=== PATIENT | female | born 1935 | race Caucasian/White ===

== ENCOUNTER 2022-09-17 08:45 | Outpatient (CLI) | payer MEDICARE, BC, SELFPAY | END 2022-09-17 08:46 | disposition home or self-care (01) | LOC: AMB 09-22 19:12 | PROVIDERS: PCP Family Medicine; Visit Provider Family Medicine | DX: U07.1 COVID-19 (principal); R06.09 Other forms of dyspnea | CPT/HCPCS: A0998 ==

== ENCOUNTER 2022-12-05 15:03 | Outpatient (CLI) | payer MEDICARE, BC, SELFPAY | END 2022-12-05 15:04 | disposition home or self-care (01) | LOC: AMB 12-08 09:27 | PROVIDERS: PCP Family Medicine; Visit Provider Emergency Medicine | DX: R53.1 Weakness (principal) | CPT/HCPCS: A0998 ==

== ENCOUNTER 2023-11-23 12:00 | Outpatient (CLI) | payer MEDICARE, BC, SELFPAY | END 2023-11-23 12:01 | disposition home or self-care (01) | LOC: AMB 12-01 11:37 | PROVIDERS: PCP Family Medicine; Visit Provider Emergency Medicine | DX: S79.912A Unspecified injury of left hip, initial encounter (principal); W07.XXXA Fall from chair, initial encounter; Y92.039 Unspecified place in apartment as the place of occurrence of the external cause | CPT/HCPCS: A0425; A0429 ==

== ENCOUNTER 2023-11-23 12:24 | Inpatient (IN) | payer MEDICARE, BC, SELFPAY ==
[2023-11-23] VITALS (7 sets, daily range): BP systolic 76–169; BP diastolic 49–82; PULSE 62–89; RESP 16–20; TEMP 36.6–36.9; O2SAT 86–94; BMI 26.6
--- NOTE | 2023-11-23 13:08 | XR_ITS ---
Patient: MARIA ESTHER JORDAN Facility:?[facility] Patient ID:?[id number] Site Patient ID:?[id number]. Site :?[id number] Study:?XRay-Chest 1V-11/23/2023 1:45:15 PM Ordering Physician:SOBEIDA Final Report: Indication: Hypoxia, fall Technique: Chest 1 view Comparison: Chest x-ray 12/06/2021 Findings/Impression: Cardiovascular and mediastinum: Mild cardiomegaly with left-sided dual lead pacemaker. Atherosclerosis. Lungs and pleural space: No pleural effusion or pneumothorax. Mild pulmonary cephalization. Bones and soft tissues: No acute findings. Dictated by Marlo Angel MD @ 11/23/2023 1:54:44 PM Signed by:?Marlo Angel MD @11/23/2023 1:54:44 PM (Electronic Signature)
--- NOTE | 2023-11-23 13:09 | XR_ITS ---
Patient: MARIA ESTHER JORDAN Facility:?[facility] Patient ID:?[id number] Site Patient ID:?[id number]. Site :?[id number] Study:?XRay-Hip Left 3V-11/23/2023 1:46:08 PM Ordering Physician:SOBEIDA Final Report: INDICATION: Fall. TECHNIQUE: AP pelvis and 2 views of the left hip. COMPARISON: Radiographs 06/20/2020. FINDINGS: There is limited evaluation of the left femoral neck due to poor profiling from external rotation of the left lower extremity. Given these limitations, there is suggestion of cortical disruption and minimal impaction along the lateral aspect of the subcapital femoral neck. No definite femoral neck fracture line is visualized. There are mildly displaced fractures of the left superior and inferior pubic rami. Right hip is unremarkable. The sacrum is obscured by bowel gas. Moderate lower lumbar degenerative disc disease. Extensive atherosclerotic arterial calcifications. IMPRESSION : 1. Mildly displaced left superior and inferior pubic rami fractures. 2. Query nondisplaced subcapital left femoral neck fracture due to new lateral cortical buckling; however, a discrete fracture line is not visualized. Dictated by Regina Oden MD @ 11/23/2023 2:35:57 PM Signed by:?Regina Oden MD @11/23/2023 2:35:57 PM (Electronic Signature)
--- NOTE | 2023-11-23 13:36 | ED_ITS ---
HPI - General Adult General Date Seen: 11/23/23 Chief complaint: Fall/Minor Trauma Stated complaint: Fall Time Seen by Provider: 11/23/23 13:01 Source: patient and RN notes reviewed Mode of arrival: EMS Limitations: no limitations History of Present Illness HPI narrative: Patient is an 88-year-old woman who says she lives independently in a senior apartment. She was going to sit down on a chair that had pillows on it and she says the pillow slipped off and she fell landing hard on her left hip. She said it knocked the wind out of her but she otherwise has not been feeling short of breath. Denies chest pain or chest injury. She has not tried to walk on her left leg since falling, she did stand on it to pivot into the ER bed and said it was painful to put weight on it. She is anticoagulated on Coumadin, which she takes for atrial fibrillation. She denies hitting her head, no reported loss of consciousness. No neck or back pain. Related Data Home Medications Medication Instructions Recorded Confirmed acetaminophen 500 mg tablet 500 - 1,000 mg PO PRN 07/07/22 07/07/22 calcium carbonate 500 mg-vitamin 1 tab PO DAILY 07/07/22 07/07/22 D3 10 mcg (400 unit) tablet cholecalciferol (vitamin D3) 50 2,000 unit PO DAILY 07/07/22 07/07/22 mcg (2,000 unit) tablet fosinopril 20 mg tablet 20 mg PO DAILY 07/07/22 07/07/22 levothyroxine 112 mcg tablet 112 mcg PO DAILY 07/07/22 07/07/22 multivitamin 1 tab PO QDAY 07/07/22 07/07/22 triamterene 37.5 1 cap PO DAILY 07/07/22 07/07/22 mg-hydrochlorothiazide 25 mg capsule vitamins A,C,M-tffz-koamoi 4,296 1 cap PO .QD 07/07/22 07/07/22 mcg-226 mg-90 mg capsule (PreserVision AREDS) warfarin 2 mg tablet 2 - 4 mg PO .ud 07/07/22 07/07/22 Allergies Allergy/AdvReac Type Severity Reaction Status Date / Time piperacillin Allergy Mild Rash Verified 11/23/23 12:34 sulfamethoxazole Allergy Verified 11/23/23 12:34 [From Sulfamethoxazole-Trimethoprim] trimethoprim Allergy Verified 11/23/23 12:34 [From Sulfamethoxazole-Trimethoprim] Review of Systems Status of ROS: Reports: 6 or more systems reviewed and unremarkable except as noted in History and below [facility] Social History Smoking Status: Former smoker Exam Narrative: Exam Narrative: Vital signs as noted above. In general, an alert, well-appearing patient. Head: Normocephalic, atraumatic. Eyes: Pupils are equal reactive. Extraocular movements are full. Conjunctivae are normal. ENT: Mucous membranes are moist. Throat is normal. Neck: Supple without lymphadenopathy. Heart: Regular rate and rhythm. No murmur or rub. Lungs: Clear bilaterally. No increased work of breathing, crackles or wheezes. Abdomen: Soft and nontender. No organomegaly. Extremities: Trace edema in both lower extremities. Venous stasis changes. No significant bruising or deformity noted to the left hip, pain with range of motion. Neurologic: Patient is alert and oriented to person and place. Speech is fluent. Face is symmetric. Moves all extremities equally. Affect: Normal. Skin: Warm and dry. Well perfused. Const: Vital Signs, click to edit/add: Vital Signs - 24 hr 11/23/23 12:32 Temperature 98.0 F Pulse Rate [Right Pulse Oximeter] 89 Respiratory Rate 16 Blood Pressure [Ri ght Upper Arm] 149/82 H Pulse Oximetry 86 L Oxygen Delivery Me thod Room Air Documenting provider has reviewed patient's vital signs: yes Course Course ED Course: Noted to be mildly hypoxic on arrival and placed on some nasal cannula oxygen. Will get x-rays of the left hip as well as the chest as a result. X-ray of the left hip shows superior and inferior pubic rami fractures by my review, the femoral neck also looks a little funny on the AP view although the frog-leg looks good. Radiology read it as abnormal as well and recommended CT scan. CT of the left hip as follows:FINDINGS: LEFT HIP: No joint effusion or loose body. Minimal hypertrophic change and narrowing. OSSEOUS STRUCTURES: Highly comminuted mildly displaced fracture of the left inferior pubic ramus and right superior pubic ramus at the junction with the pubic. There is adjacent hemorrhage in the adductor musculature and extraperitoneal space of Retzius. No discrete hematoma. In addition there is a nondisplaced fracture of the superior left sacral ala anteriorly. No left femoral neck fracture is evident. The radiographic findings are secondary to overlap from hypertrophic changes. OTHER JOINT SPACES: Right Hip: No joint effusion. SI Joints: Mild degenerative changes. Lumbar Spine: Degenerative changes lower lumbar spine. MUSCLES AND TENDONS: Hemorrhage in the left adductor musculature. No hematoma. No muscle atrophy. No retracted tendon tear. SOFT TISSUES: No subcutaneous edema, fluid collection or hematoma. INTRAPELVIC CONTENTS: No free intraperitoneal fluid. Fat containing umbilical hernia. NEUROVASCULAR STRUCTURES: No abnormality of the neurovascular structures. IMPRESSION: 1. No left femoral neck fracture is evident. 2. Comminuted displaced fractures of the left superior and inferior pubic rami with adjacent hemorrhage. No focal hematoma. 3. Nondisplaced fracture of the left sacral ala. 4. Mild degenerative changes in the left hip joint and SI joints. 5. Degenerative changes lower lumbar spine.. Overall she is doing okay as long she does not have to move, but just rolling to the side to get on the bedpan was a struggle for her. She lives at assisted living, has minimal help aside from an aide who comes in a couple times a week. I do not think she will be able to manage as is. Recommend admission for pain control, PT eval and consideration of short-term rehab facility. She remains on a couple L of oxygen here, chest x-ray was negative. Labs added on as well, pending. Vital Signs Vital signs: Initial Vital Signs Temperature 98.0 F 11/23/23 12:32 Temperature Source Temporal Artery Scan 11/23/23 12:32 Pulse Rate 89 11/23/23 12:32 Pulse Rhythm Regular 11/23/23 12:32 Pulse Strength 3+ Normal 11/23/23 12:32 Respiratory Rate 16 11/23/23 12:32 Blood Pressure 149/82 H 11/23/23 12:32 Blood Pressure Mean 104 11/23/23 12:32 Blood Pressure Position Sitting 11/23/23 12:32 Pulse Oximetry 86 L 11/23/23 12:32 Oxygen Delivery Method Room Air 11/23/23 12:32 Vital Signs Temperature 98.0 F 11/23/23 12:32 Pulse Rate 89 11/23/23 12:32 Respiratory Rate 16 11/23/23 12:32 Blood Pressure 149/82 H 11/23/23 12:32 Pulse Oximetry 86 L 11/23/23 12:32 Oxygen Delivery Method Room Air 11/23/23 12:32 Temperature 98.0 F 11/23/23 12:32 Pulse Rate 89 11/23/23 12:32 Respiratory Rate 16 11/23/23 12:32 Blood Pressure 149/82 H 11/23/23 12:32 Pulse Oximetry 86 L 11/23/23 12:32 Oxygen Delivery Method Room Air 11/23/23 12:32 Discharge Plan Discharge Prescriptions: No Action cholecalciferol (vitamin D3) 50 mcg (2,000 unit) tablet 2,000 unit PO DAILY calcium carbonate-vitamin D3 500 mg-10 mcg (400 unit) tablet 1 tab PO DAILY levothyroxine 112 mcg tablet 112 mcg PO DAILY triamterene-hydrochlorothiazid 37.5-25 mg capsule 1 cap PO DAILY acetaminophen 500 mg tablet 500 - 1,000 mg PO PRN Rx Instructions: NO MORE THAN 4000 MG/DAY fosinopril 20 mg tablet 20 mg PO DAILY multivitamin Tablet 1 tab PO QDAY PreserVision AREDS [id number],320-226-200 [id number]-ak-[id number] capsule 1 cap PO .QD warfarin 2 mg tablet 2 - 4 mg PO .ud Patient Comments: take 1 tablet (2mg) by mouth on monday; then 2 tablets (4mg) on all other days or as directed. Follow Up/Referrals: Brittanie Whyte DO [Primary Care Provider] -
--- NOTE | 2023-11-23 14:42 | CT_ITS ---
Patient: MARIA ESTHER JORDAN Facility:?[facility] Patient ID:?[id number] Site Patient ID:?[id number]. Site :?[id number] Study:?CT-Hip Left W/O-11/23/2023 3:02:59 PM Ordering Physician:SOBEIDA Final Report: EXAM: CT OF THE LEFT HIP, WITHOUT CONTRAST CLINICAL INDICATION: Pain following injury. Abnormal x-ray. COMPARISON STUDIES: Radiographs from earlier the day. TECHNICAL: Non-contrast CT of the pelvis with axial images. Sagittal oblique and coronal oblique reformatted images of the left hip created. FINDINGS: LEFT HIP: No joint effusion or loose body. Minimal hypertrophic change and narrowing. OSSEOUS STRUCTURES: Highly comminuted mildly displaced fracture of the left inferior pubic ramus and right superior pubic ramus at the junction with the pubic. There is adjacent hemorrhage in the adductor musculature and extraperitoneal space of Retzius. No discrete hematoma. In addition there is a nondisplaced fracture of the superior left sacral ala anteriorly. No left femoral neck fracture is evident. The radiographic findings are secondary to overlap from hypertrophic changes. OTHER JOINT SPACES: Right Hip: No joint effusion. SI Joints: Mild degenerative changes. Lumbar Spine: Degenerative changes lower lumbar spine. MUSCLES AND TENDONS: Hemorrhage in the left adductor musculature. No hematoma. No muscle atrophy. No retracted tendon tear. SOFT TISSUES: No subcutaneous edema, fluid collection or hematoma. INTRAPELVIC CONTENTS: No free intraperitoneal fluid. Fat containing umbilical hernia. NEUROVASCULAR STRUCTURES: No abnormality of the neurovascular structures. IMPRESSION: 1. No left femoral neck fracture is evident. 2. Comminuted displaced fractures of the left superior and inferior pubic rami with adjacent hemorrhage. No focal hematoma. 3. Nondisplaced fracture of the left sacral ala. 4. Mild degenerative changes in the left hip joint and SI joints. 5. Degenerative changes lower lumbar spine. Please note that all CT scans at this facility use dose modulation, iterative reconstruction, and/or weight-based dosing when appropriate to reduce radiation dose to as low as reasonably achievable. Dictated by Geremias Sotomayor MD @ 11/23/2023 3:18:42 PM Signed by:?Geremias Sotomayor MD @11/23/2023 3:18:42 PM (Electronic Signature)
[2023-11-23 15:40] LABS: Appearance Urine Clear (Clear); Bilirubin Urine Negative (Negative); Blood Urine Trace-intact (Negative); Color Urine Yellow (Yellow); Glucose Urine Negative (Negative); Ketones Urine Negative (Negative); Leukocyte Esterase Urine Trace (Negative); Nitrite Urine Negative (Negative); Protein Urine Negative (Negative); Specific Gravity Urine 1.025 (1.000-1.030); Urobilinogen Urine 0.2 (0.2-1.0)
[2023-11-23 16:03] LABS: Basophils Percent Auto 0.1 % (0.0-3.0); Eosinophils Percent Auto 0.2 % (0.0-7.0); Hematocrit 40.7 % (33.0-51.0); Immature Granulocytes Pct Auto 1.2 %; Lymphocytes Percent Auto 3.3 % (20-44); Mean Corpuscular HGB Conc 32 gm/dL (32-36); Mean Corpuscular Hemoglobin 31 pg (26-34); Mean Corpuscular Volume 98 fL (80-100); Monocytes Percent Auto 4.4 % (0.0-11.0); Neutrophils Percent Auto 90.8 % (42.0-72.0); Platelet Count* 143 K/uL (140-440); RDW Coefficient of Variation % 14.4 % (11.5-15.5); Red Blood Count 4.17 m/uL (4.00-5.20); White Blood Count* 14.86 K/uL (4.50-11.00)
[2023-11-23 16:12] LABS: Chloride* 99 mmol/L (96-114)
[2023-11-23 16:13] LABS: Potassium* 4.3 mmol/L (3.6-5.1); Sodium* 138 mmol/L (135-149)
[2023-11-23 16:15] LABS: Est. Creatinine Clearance* 34.99; Estimated Glomerular Filt Rate 54 ml/min
[2023-11-23 16:16] LABS: Anion Gap 9 mEq/L (7-15); Blood Urea Nitrogen* 40 mg/dL (7-30); Calcium* 9.4 mg/dL (8.4-10.6); Carbon Dioxide* 30 mmol/L (20-32)
[2023-11-23 16:24] LABS: Bacteria Urine Few; Squamous Epithelial Cell Urine Few (None-Few)
[2023-11-23 16:34] LABS: Glucose* 135 mg/dL (60-115)
[2023-11-23 16:38] LABS: NT Pro B Type NatriureticPept* 2220 pg/mL
[2023-11-23 16:52] LABS: Slide Review Reflex Yes
[2023-11-23 16:55] LABS: Slide Review Acceptable Review (Acceptable)
[2023-11-23 17:01] LABS: PCR FLU A Negative PCR FLU A (Negative); PCR FLU B Negative PCR FLU B (Negative); PCR RSV Negative PCR RSV (Negative); SARS PCR* Negative SARS-CoV-2 (Negative)
--- NOTE | 2023-11-23 17:15 | PM.IMHP1 ---
Hospitalist- H&P: HPI History of Present Illness Date Seen: 11/23/23 Chief complaint: Fall Narrative: Kaitlynn Castrejon is a 88 year old female who presented to the ED today after a fall at home. She was going to sit down on a chair that had pillows on the seat, and one of the pillows slipped when she sat down. She fell off of the chair and landed onto her L hip. She did not hit her head or have any LOC. She has had significant L hip pain since injury and is unable to bear weight comfortably. She is anticoagulated on Coumadin for history of atrial fibrillation. ER Course and Findings: - comminuted displaced fractures of left superior and inferior pubic rami with adjacent hemorrhage but no focal hematoma, nondisplaced fracture of left sacral ala, no femoral neck fracture - hypoxia with O2 saturation of 86% in the ED. no chest pain, no dyspnea, no acute findings on chest x-ray. Placed on supplemental oxygen Given patient's fracture and inability to bear weight, she is admitted to the hospital for pain management, therapies, TCU referral. Histories are updated below. PCP is Dr. Whyte at [facility]. Review of Systems Status of ROS: Reports: 10 or more systems reviewed and unremarkable except as noted in History and below [facility] Medical History (Updated 11/23/23 @ 20:14 by Jessica Wilson MD) Hypothyroidism ?E03.9 - Hypothyroidism, unspecified (ICD-10) Paroxysmal atrial fibrillation ?I48.0 - Paroxysmal atrial fibrillation (ICD-10) CKD (chronic kidney disease) stage 3, GFR 30-59 ml/min ?N18.30 - Chronic kidney disease, stage 3 unspecified (ICD-10) Osteoporosis ?M81.0 - Age-related osteoporosis without current pathological fracture (ICD-10) Essential hypertension ?I10 - Essential (primary) hypertension (ICD-10) Pacemaker ?Z95.0 - Presence of cardiac pacemaker (ICD-10) Surgical History (Updated 11/23/23 @ 17:53 by Jessica Wilson MD) Cataract (lens) fragments in eye following cataract surgery ?H59.029 - Cataract (lens) fragments in eye following cataract surgery, unspecified eye (ICD-10) Hx of colonoscopy ?Z98.890 - Other specified postprocedural states (ICD-10) Social History (Updated 11/23/23 @ 17:48 by Jessica Wilson MD) Narrative: Lives alone, no children. Caregiver Tanja Mendiola would be MDM if needed. 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 Former smoker, quit remotely. No ETOH. Requests trial of CPR/Full Code status with no desire for long-term intubation. What is your current living situation?: I presently have a place to live Problems where you live: no known problems Problems where you live details: N/A In the past 12 months, utilities in danger of being shut off: no In past 12 months, lack of transportation kept you from medical appts, meetings, work, or getting things needed for daily living: no In the past 12 mos, have been you worried that your food would run out before you had money to buy more?: never true In the past 12 mos, the food you bought just didn't last and you didn't have money to buy more?: never true Smoking Status: Former smoker How often does anyone, including family, friends and others, physically hurt you: never How often does anyone, including family, friends and others, insult or talk down to you: never How often does anyone, including family, friends and others, threaten you with harm: never How often does anyone, including family, friends and others, scream or curse at you: never Meds Home Medications and Allergies Home Medications Medication Instructions Recorded Confirmed Type calcium carbonate 500 mg-vitamin 1 tab PO DAILY 07/07/22 11/23/23 History D3 10 mcg (400 unit) tablet cholecalciferol (vitamin D3) 50 2,000 unit PO DAILY 07/07/22 11/23/23 History mcg (2,000 unit) tablet multivitamin 1 tab PO DAILY 07/07/22 11/23/23 History vitamins A,C,I-woyc-wnvkat 4,296 1 cap PO DAILY 07/07/22 11/23/23 History mcg-226 mg-90 mg capsule (PreserVision AREDS) warfarin 2 mg tablet 2 - 4 mg PO .ud 07/07/22 11/23/23 History fluconazole 150 mg tablet 150 mg PO QWEEK 11/23/23 11/23/23 History fosinopril 10 mg tablet 10 mg PO DAILY 11/23/23 11/23/23 History levothyroxine 125 mcg tablet 125 mcg PO QAM 11/23/23 11/23/23 History metoprolol succinate 50 mg 50 mg PO DAILY 11/23/23 11/23/23 History tablet,extended release 24 hr Allergies Allergy/AdvReac Type Severity Reaction Status Date / Time piperacillin Allergy Mild Rash Verified 11/23/23 12:34 sulfamethoxazole Allergy Verified 11/23/23 12:34 [From Sulfamethoxazole-Trimethoprim] trimethoprim Allergy Verified 11/23/23 12:34 [From Sulfamethoxazole-Trimethoprim] Exam Narrative: Exam Narrative: GEN: Alert and oriented, answering questions appropriately HEENT: EOMIs bilaterally, no scleral icterus CV: S1, S2, in sinus rhythm during exam, no concerning murmurs R: LCTA bilaterally without concerning wheezing Ext: Feet bilaterally erythematous and cool, pulses bilaterally diminished, + capillary refill, no ttp. No edema of ankles Skin: Erythema of BLE, c/w PVD. No other concerning skin lesions on exposed skin Neuro: Nonfocal Psych: Appropriate Const: Vital Signs, click to edit/add: Vital Signs - 24 hr 11/23/23 12:32 11/23/23 16:55 Temperature 98.0 F 97.8 F Pulse Rate [Right Pulse Oximeter] 89 Pulse Rate [Right Radial] 62 Respiratory Rate 16 18 Blood Pressure [Ri ght Arm] 169/77 H Blood Pressure [Ri ght Upper Arm] 149/82 H Pulse Oximetry 86 L 94 Oxygen Delivery Me thod Room Air Nasal Cannula Oxygen Flow Rate 2 Hospitalist - H&P: Result Labs Labs: Short CBC 11/23/23 Range/Units 15:50 WBC 14.86 H (4.50-11.00) K/uL Hgb 13.0 (12.0-16.0) gm/dL Hct 40.7 (33.0-51.0) % Plt Count 143 (140-440) K/uL BMP 11/23/23 15:50 Sodium 138 Potassium 4.3 Chloride 99 Carbon Dioxide 30 BUN 40 H Creatinine 1.0 Glucose 135 H Calcium 9.4 Urine 11/23/23 Range/Units 15:12 Urine Color Yellow (Yellow) Urine Appearance Clear (Clear) Urine pH 7.0 (5.0-8.5) Ur Specific Salley 1.025 (1.000-1.030) Urine Protein Negative (Negative) Urine Glucose (UA) Negative (Negative) Assessment and Plan Assessment and plan (1) Closed pelvic ring fracture: Problem comment: - sustained after mechanical fall at home, 11/23/23 - pain management, PT, OT, SW referral Status: Acute (2) Hypoxia: Problem comment: - mild, new - no acute findings on CXR: no tachycardia, no chest pain, dyspnea, cough, or hemoptysis, no LE edema - continue supplemental oxygen, taper as tolerated Status: Acute (3) Paroxysmal atrial fibrillation: Problem comment: - anticoagulated on Coumadin, rate controlled on Metoprolol - holding Coumadin on admission given fall and hemorrhage on CT scan Status: Acute (4) Essential hypertension: Problem comment: - continue home medications Status: Acute Plan - per above - patient agreeable with plan
[2023-11-23] MEDS: ACETAMINOPHEN 650 MG TABLET ER 1300 MG PO (18:02)
[2023-11-23 18:41] LABS: INR 1.65 (0.91-1.10); Prothrombin Time 20.7 Seconds
[2023-11-24] MEDS: ACETAMINOPHEN 650 MG TABLET ER 1300 MG PO ×2 (01:31→08:40)
[2023-11-24 03:00] VITALS: BP 108/66; PULSE 60; RESP 20; TEMP 36.6; O2SAT 92
[2023-11-24] MEDS: OXYCODONE 5 MG TABLET PO ×2 (06:08→13:48)
[2023-11-24] MEDS: LEVOTHYROXINE 125 MCG TABLET PO (06:09)
[2023-11-24 06:46] LABS: Basophils Percent Auto 0.3 % (0.0-3.0); Eosinophils Percent Auto 0.8 % (0.0-7.0); Hematocrit 33.3 % (33.0-51.0); Hemoglobin* 10.9 gm/dL (12.0-16.0); Immature Granulocytes Pct Auto 0.5 %; Lymphocytes Percent Auto 3.7 % (20-44); Mean Corpuscular HGB Conc 33 gm/dL (32-36); Mean Corpuscular Hemoglobin 31 pg (26-34); Mean Corpuscular Volume 96 fL (80-100); Monocytes Percent Auto 7.8 % (0.0-11.0); Neutrophils Percent Auto 86.9 % (42.0-72.0); Platelet Count* 97 K/uL (140-440); RDW Coefficient of Variation % 14.5 % (11.5-15.5); Red Blood Count 3.48 m/uL (4.00-5.20)
--- NOTE | 2023-11-24 06:47 | PC.NURSE ---
19-07: pleasant and cooperative. Incont. A x 2 to BSC, did not tolerate well, pt was unable to pivot. Nurse held HS dose Metoprolol, soft pressures noted, updated, no change in orders. Moist cough noted, Pt requiring 1L O2, maintaining sats in the low 90s.
[2023-11-24 06:53] LABS: Slide Review Reflex No
[2023-11-24 07:09] LABS: Prothrombin Time 23.1 Seconds
[2023-11-24 07:10] LABS: Chloride* 102 mmol/L (96-114); Potassium* 5.2 mmol/L (3.6-5.1); Sodium* 136 mmol/L (135-149)
[2023-11-24 07:13] LABS: Anion Gap 6 mEq/L (7-15); Blood Urea Nitrogen* 48 mg/dL (7-30); Carbon Dioxide* 28 mmol/L (20-32); Creatinine* 1.5 mg/dL (0.5-1.5); Est. Creatinine Clearance* 23.33; Estimated Glomerular Filt Rate 33 ml/min; Glucose* 130 mg/dL (60-115)
[2023-11-24 07:14] LABS: Calcium* 9.2 mg/dL (8.4-10.6)
[2023-11-24 08:22] VITALS: BP 108/62; PULSE 65; RESP 18; TEMP 37.2; O2SAT 89
[2023-11-24] MEDS: FOSINOPRIL SODIUM 20 MG TABLET 10 MG PO (08:40)
[2023-11-24] MEDS: SODIUM CHLORIDE 0.9 % (FLUSH) 10 ML SYRINGE 5 ML IVF ×2 (08:41→21:04)
--- NOTE | 2023-11-24 11:31 | P.IMPN_ITS ---
Progress Note: A&P Assessment and plan (1) Closed pelvic ring fracture: Problem details: - sustained after mechanical fall at home, 11/23/23 - pain management, WBAT, PT, OT, SW referral for SNF placement - Adjacent hemorrhage on CT yesterday. Hgb 13 yesterday, now 10.9. Discussing with ortho whether or not to repeat imaging and when to restart coumadin. Status: Acute (2) Hypoxia: Problem details: - mild, new - no acute findings on CXR: no tachycardia, no chest pain, dyspnea, cough, or hemoptysis, no LE edema - continue supplemental oxygen, RT consult and IS to open lungs (suspect body h abitus and kyphosis are contributing to poor lung capacity), taper oxygen as tolerated Status: Acute (3) CKD (chronic kidney disease) stage 3, GFR 30-59 ml/min: Problem details: Increase in Cr overnight. Potassium also slightly high. Hold fosinopril. Monitor. Status: Chronic (4) Paroxysmal atrial fibrillation: Problem details: - anticoagulated on Coumadin, rate controlled on Metoprolol - holding Coumadin on admission given fall and hemorrhage on CT scan - see above - last TTE in 06/17: Final Impressions: 1. Normal LV size, normal wall thickness, normal global systolic function with an estimated EF of 55 - 60%. 2. Right ventricular cavity size is mildly enlarged, global systolic RV function is mildly reduced. 3. The aortic valve is trileaflet and sclerotic, no stenosis and no regurgitation. 4. The mitral valve is sclerotic, mild mitral regurgitation. 5. Mild-moderate tricuspid regurgitation. 6. Mildly enlarged left atrium. 7. Echo contrast was administered to enhance visualization of all left ventricular segments. Status: Chronic (5) Essential hypertension: Problem details: - holding fosinopril due to increased creatinine and mild hyperkalemia Status: Acute Subjective Time Seen by Provider: 09:59 Date Seen: 11/24/23 Interval history: Kaitlynn is feeling a bit better today, but still has some pain and difficulty standing and moving on her own. She used a bedside commode and notes that she would not be set up to do this at home independently. She is hoping to get rehab, recognizing that she needs it at this point. She has been mildly hypoxic overnight. Denies shortness of breath or chest pain. She has not had any coughs or fevers. Exam Narrative: Exam Narrative: General: No acute distress. Awake, alert, oriented x3. No pallor. No jaundice. Kyphotic. Oropharynx: Clear. Mucous membranes moist. Cardiovascular: Regular rate and rhythm. No murmurs, gallops, or rubs. Respiratory: Clear to auscultation bilaterally. No wheezes or crackles. Extremities: Chronic vascular changes noted. No lower extremity edema. Const: Vital Signs, click to edit/add: Vital Signs - 24 hr 11/23/23 12:32 11/23/23 16:53 11/23/23 16:55 Temperature 98.0 F 97.8 F Pulse Rate [Right Pulse Oximeter] 89 Pulse Rate [Right Radial] 62 Respiratory Rate 16 20 18 Blood Pressure [Ri ght Arm] 169/77 H Blood Pressure [Ri ght Upper Arm] 149/82 H Pulse Oximetry 86 L 92 94 Oxygen Delivery Me thod Room Air Nasal Cannula Nasal Cannula Oxygen Flow Rate 1 2 11/23/23 20:00 11/23/23 21:30 11/23/23 21:31 Temperature 98.4 F Pulse Rate [Right Pulse Oximeter] Pulse Rate [Right Radial] 75 62 Respiratory Rate 20 20 Blood Pressure [Ri ght Arm] 116/66 76/49 L 100/66 Blood Pressure [Ri ght Upper Arm] Pulse Oximetry 92 Oxygen Delivery Me thod Nasal Cannula Oxygen Flow Rate 1 11/23/23 23:00 11/23/23 23:00 11/24/23 03:00 Temperature 97.8 F Pulse Rate [Right Pulse Oximeter] Pulse Rate [Right Radial] 60 Respiratory Rate 20 20 20 Blood Pressure [Ri ght Arm] 108/66 Blood Pressure [Ri ght Upper Arm] Pulse Oximetry 92 92 Oxygen Delivery Me thod Nasal Cannula Nasal Cannula Oxygen Flow Rate 1 1 11/24/23 08:22 11/24/23 08:22 Temperature 99.0 F Pulse Rate [Right Pulse Oximeter] Pulse Rate [Right Radial] 65 Respiratory Rate 18 Blood Pressure [Ri ght Arm] 108/62 Blood Pressure [Ri ght Upper Arm] Pulse Oximetry 89 89 Oxygen Delivery Me thod Nasal Cannula Nasal Cannula Oxygen Flow Rate 1 1 Labs Labs: Laboratory Results - last 24 hr 11/23/23 11/23/23 11/24/23 15:12 15:50 06:13 WBC 14.86 H 12.90 H RBC 4.17 3.48 L Hgb 13.0 10.9 L Hct 40.7 33.3 MCV 98 96 MCH 31 31 MCHC 32 33 RDW Coeff of [place]al 14.4 14.5 Plt Count 143 97 L Neut % (Auto) 90.8 H 86.9 H Lymph % (Auto) 3.3 L 3.7 L [place] % (Auto) 4.4 7.8 Eos % (Auto) 0.2 0.8 Baso % (Auto) 0.1 0.3 Neut # (Auto) 13.50 H 11.20 H Lymph # (Auto) 0.50 L 0.50 L [place] # (Auto) 0.70 1.00 H Eos # (Auto) 0.00 0.10 Baso # (Auto) 0.00 0.00 Abs Immat Gran (auto) 0.20 0.10 Imm/Tot Granulo (auto) 1.2 0.5 Diff Slide Review Acceptable Review INR 1.65 H 1.90 H Sodium 138 136 Potassium 4.3 5.2 H Chloride 99 102 Carbon Dioxide 30 28 Anion Gap 9 6 L BUN 40 H 48 H Creatinine 1.0 1.5 Estimated Creat Clear 34.99 23.33 Estimated GFR 54 33 Glucose 135 H 130 H Calcium 9.4 9.2 NT-Pro-B Natriuret Pep 2220 Urine Color Yellow Urine Appearance Clear Urine pH 7.0 Ur Specific [place] 1.025 Urine Protein Negative Urine Glucose (UA) Negative Urine Ketones Negative Urine Blood Trace-intact A Urine Nitrite Negative Urine Bilirubin Negative Urine Urobilinogen 0.2 Ur Leukocyte Esterase Trace A Urine RBC 2-5 A Urine WBC 2-5 Ur Squamous Epith Cells Few Urine Bacteria Few A SARS-CoV-2 (PCR) Negative SARS-CoV-2 Influenza Type A (PCR) Negative PCR FLU A Influenza Type B (PCR) Negative PCR FLU B RSV (PCR) Negative PCR RSV Lab Acknowledgement Test Added
[2023-11-24 12:30] VITALS: BP 93/58; PULSE 64; RESP 20; TEMP 36.5; O2SAT 90
[2023-11-24 16:19] VITALS: BP 116/62; PULSE 62; RESP 18; TEMP 36.9; O2SAT 91
--- NOTE | 2023-11-24 16:37 | PC.SOCIAL ---
Discharge planning: Met with pt regarding d/c plan. Pt states she lives at [facility] and has a caregiver who come freqeutly to assist as needed. She states she will probably need a short term rehab stay at discharge and is requesting placement at either [facility] or the [facility]. She is aware that [facility] would most likely be covered by insurance but that the enhanced assisted living would be private pay. Sent information to both facilities for evaluation fro admit. Did not receive any decision from [facility], but was contacted by Karin at the [facility] who states they can accept pt on Monday. Met again with pt who states she is leaning towards placement at the [facility]. [employer] to follow up as needed.
[2023-11-24] MEDS: WARFARIN 2 MG TABLET 4 MG PO (17:23)
[2023-11-24] MEDS: DOCUSATE SODIUM 100 MG CAPSULE PO (17:26)
[2023-11-24 20:00] VITALS: BP 100/49; PULSE 60; RESP 20; TEMP 36.9; O2SAT 88
[2023-11-24 23:00] VITALS: BP 119/51; PULSE 60; PULSE 64; RESP 20; TEMP 36.8; O2SAT 88
[2023-11-25] VITALS (9 sets, daily range): BP systolic 99–135; BP diastolic 41–71; PULSE 60–74; RESP 18–24; TEMP 36.4–37.2; O2SAT 90–94
[2023-11-25] MEDS: ACETAMINOPHEN 650 MG TABLET ER 1300 MG PO ×3 (02:41→17:33)
[2023-11-25] MEDS: polyethylene glycoL 3350 17 GM PACK PO (06:41)
[2023-11-25] MEDS: OXYCODONE 5 MG TABLET PO (06:41)
[2023-11-25] MEDS: LEVOTHYROXINE 125 MCG TABLET PO (06:41)
[2023-11-25] MEDS: DOCUSATE SODIUM 100 MG CAPSULE PO (06:41)
[2023-11-25 06:50] LABS: Basophils Percent Auto 0.2 % (0.0-3.0); Eosinophils Percent Auto 0.9 % (0.0-7.0); Hematocrit 31.7 % (33.0-51.0); Hemoglobin* 10.2 gm/dL (12.0-16.0); Immature Granulocytes Pct Auto 1.1 %; Lymphocytes Percent Auto 2.9 % (20-44); Mean Corpuscular HGB Conc 32 gm/dL (32-36); Mean Corpuscular Hemoglobin 31 pg (26-34); Mean Corpuscular Volume 98 fL (80-100); Neutrophils Percent Auto 86.9 % (42.0-72.0); Platelet Count* 78 K/uL (140-440); RDW Coefficient of Variation % 14.8 % (11.5-15.5); Red Blood Count 3.25 m/uL (4.00-5.20); White Blood Count* 14.04 K/uL (4.50-11.00)
[2023-11-25 07:15] LABS: Slide Review Reflex No
[2023-11-25 07:16] LABS: Chloride* 99 mmol/L (96-114); Potassium* 4.8 mmol/L (3.6-5.1); Sodium* 135 mmol/L (135-149)
[2023-11-25 07:18] LABS: INR 2.82 (0.91-1.10); Prothrombin Time 31.8 Seconds
[2023-11-25 07:19] LABS: Anion Gap 10 mEq/L (7-15); Blood Urea Nitrogen* 61 mg/dL (7-30); Carbon Dioxide* 26 mmol/L (20-32); Creatinine* 1.9 mg/dL (0.5-1.5); Est. Creatinine Clearance* 18.42; Estimated Glomerular Filt Rate 25 ml/min
[2023-11-25 07:20] LABS: Calcium* 8.8 mg/dL (8.4-10.6); Glucose* 112 mg/dL (60-115)
[2023-11-25] MEDS: 0.9 % SODIUM CHLORIDE 1000 ml 1,000 ML 250 ML IV (09:12)
[2023-11-25] MEDS: SODIUM CHLORIDE 0.9 % (FLUSH) 10 ML SYRINGE 5 ML IVF ×2 (09:13→21:25)
[2023-11-25] MEDS: SENNOSIDES/DOCUSATE TABLET 1 TAB PO ×2 (14:00→21:25)
--- NOTE | 2023-11-25 17:32 | P.IMPN_ITS ---
Progress Note: A&P Assessment and plan (1) Closed pelvic ring fracture: Problem details: - sustained after mechanical fall at home, 11/23/23 - pain management, WBAT, PT, OT, SW referral for SNF placement - Adjacent hemorrhage on CT yesterday. Hgb 13 yesterday, now 10.9. Back on warfarin. Hemoglobin stable Status: Acute (2) Hypoxia: Problem details: - mild, new - no acute findings on CXR: no tachycardia, no chest pain, dyspnea, cough, or hemoptysis, no LE edema - continue supplemental oxygen, RT consult. Suspect restrictive lung disease due to kyphosis of the spine and body habitus p reventing good inspiration. Suspect undiagnosed sleep apnea. Not obviously having primary pulmonary disease. Status: Acute (3) Paroxysmal atrial fibrillation: Problem details: - anticoagulated on Coumadin, rate controlled on Metoprolol Restart Coumadin yesterday - last TTE in 06/17: Final Impressions: 1. Normal LV size, normal wall thickness, normal global systolic function with an estimated EF of 55 - 60%. 2. Right ventricular cavity size is mildly enlarged, global systolic RV function is mildly reduced. 3. The aortic valve is trileaflet and sclerotic, no stenosis and no regurgitation. 4. The mitral valve is sclerotic, mild mitral regurgitation. 5. Mild-moderate tricuspid regurgitation. 6. Mildly enlarged left atrium. 7. Echo contrast was administered to enhance visualization of all left ventricular segments. Status: Chronic (4) Essential hypertension: Problem details: - holding fosinopril due to increased creatinine and mild hyperkalemia Status: Acute (5) Acute kidney injury superimposed on chronic kidney disease: Problem details: Chronically creatinine is 1.0 with stage 3 kidney disease. Now creatinine is 1.9 with stage 4 kidney disease. I suspect this is due to hypotension and blood loss from her fracture. She did get a small bolus of fluid, 500 mL today. I encouraged oral intake. Hold Monopril and monitor renal function. Status: Acute Plan Patient is continued in hospital for evaluation and management of acute kidney injury, hypoxic respiratory failure, pain control and therapy. Total time spent is 55 minutes, 40 minutes in coordination of care and discussing with patient and other providers management of acute kidney injury and hypoxia and pain control and disposition Subjective Date Seen: 11/25/23 Interval history: 80-year-old female admitted to the hospital 2 days ago after falling at home. She was sitting down on a chair when 1 of the pillows slipped and she fell hitting her left hip. This was a relatively low energy fall and there were no other injuries. She had fairly severe pain and was unable to ambulate. She was found to have left superior and inferior pubic rami fractures with adjacent hemorrhage. She also had a nondisplaced fracture of the left sacral ala. She is on warfarin with a currently therapeutic INR. Subtherapeutic INR when she fell. Since admission she has reported that she is comfortable when she is sitting still but does not tolerate movement or weight-bearing at all. She is permitted to weight bear as tolerated unable to do so because of pain and weakness. Since admission she has been hypoxic with O2 sats in the 80s. She has been on supplemental oxygen reports no dyspnea. She is not aware of any history of hypoxia or pulmonary disease. There is a clinical suspicion of undiagnosed sleep apnea which has never been evaluated. She has a remote history of cigarette smoking. No recent respiratory illness. She has had some hypotension presumably secondary to acute blood loss from the fractures. She has also had an elevation in her creatinine. This is suspected to be due to her hypotension and acute blood loss. She has been on Monopril and this was discontinued yesterday after her morning dose. Previously had stage 3 kidney disease with a creatinine of 1.0. Now the creatinine is 1.9. Today are potassium is 4.8 and her CO2 is 26. She has been able to eat and drink but reports a poor appetite. Has been having some constipation. Exam Narrative: Exam Narrative: She is alert and appears in no distress. She gives her own history. Respirations are clear to auscultation. No wheezing rales rhonchi. Cardiovascular: S1, S2,. Abdomen is soft without tenderness or mass. She has prominent weakness with any testing of her left lower extremity. She has normal strength in both feet and ankles. Struggles to lift her left leg off the bed. 1+ edema in her ankles. Const: Vital Signs, click to edit/add: Vital Signs - 24 hr 11/24/23 20:00 11/24/23 23:00 11/24/23 23:00 Temperature 98.4 F Pulse Rate [Right Radial] 60 60 Respiratory Rate 20 20 Blood Pressure [Ri ght Arm] 100/49 L Pulse Oximetry 88 88 Oxygen Delivery Me thod Nasal Cannula Nasal Cannula Oxygen Flow Rate 1 2 11/24/23 23:00 11/25/23 02:49 11/25/23 07:00 Temperature 98.2 F 98.8 F 98.1 F Pulse Rate [Right Radial] 64 61 61 Respiratory Rate 20 24 20 Blood Pressure [Ri ght Arm] 119/51 L 107/46 L 99/41 L Pulse Oximetry 88 90 90 Oxygen Delivery Me thod Nasal Cannula Nasal Cannula Nasal Cannula Oxygen Flow Rate 2 2 1.5 11/25/23 08:00 11/25/23 08:00 11/25/23 11:00 Temperature 98.9 F Pulse Rate [Right Radial] 60 Respiratory Rate 18 18 18 Blood Pressure [Ri ght Arm] 105/46 L Pulse Oximetry 94 94 Oxygen Delivery Me thod Nasal Cannula Nasal Cannula Oxygen Flow Rate 2 2 11/25/23 15:44 Temperature 97.6 F Pulse Rate [Right Radial] 60 Respiratory Rate 20 Blood Pressure [Ri ght Arm] 104/56 L Pulse Oximetry 94 Oxygen Delivery Me thod Nasal Cannula Oxygen Flow Rate 2 Documenting provider has reviewed patient's vital signs: yes Labs Labs: Laboratory Results - last 24 hr 11/25/23 06:17 WBC 14.04 H RBC 3.25 L Hgb 10.2 L Hct 31.7 L MCV 98 MCH 31 MCHC 32 RDW Coeff of [place] 14.8 Plt Count 78 L Neut % (Auto) 86.9 H Lymph % (Auto) 2.9 L [place] % (Auto) 8.0 Eos % (Auto) 0.9 Baso % (Auto) 0.2 Neut # (Auto) 12.20 H Lymph # (Auto) 0.40 L [place] # (Auto) 1.10 H Eos # (Auto) 0.10 Baso # (Auto) 0.00 Abs Immat Gran (auto) 0.20 Imm/Tot Granulo (auto) 1.1 INR 2.82 H Sodium 135 Potassium 4.8 Chloride 99 Carbon Dioxide 26 Anion Gap 10 BUN 61 H Creatinine 1.9 H Estimated Creat Clear 18.42 Estimated GFR 25 Glucose 112 Calcium 8.8
--- NOTE | 2023-11-25 19:40 | PC.NURSE ---
Patient alert and oriented.Up in chair most of the shift. Incontinent of urine, no BM this shift. Ablel to communicate needs. Vital signs stable.
[2023-11-26 03:00] VITALS: BP 148/67; PULSE 61; RESP 20; TEMP 36.6; O2SAT 94
[2023-11-26] MEDS: ACETAMINOPHEN 650 MG TABLET ER 1300 MG PO ×3 (03:00→18:31)
[2023-11-26] MEDS: LEVOTHYROXINE 125 MCG TABLET PO (06:23)
[2023-11-26] MEDS: bisacodyL 10 MG SUPP.RECT PR (06:23)
--- NOTE | 2023-11-26 06:55 | PC.NURSE ---
19--07: A x 2 pivot to [facility]. Pt reports decreased pain in her pelvis. Nail Kegger held HS dose of Metoprolol. Pt attempted to have BM, c/o constipation, prn suppository given.
[2023-11-26 07:00] VITALS: RESP 18; O2SAT 90
[2023-11-26 07:39] LABS: Basophils Percent Auto 0.2 % (0.0-3.0); Eosinophils Percent Auto 0.7 % (0.0-7.0); Hematocrit 34.3 % (33.0-51.0); Immature Granulocytes Pct Auto 0.6 %; Lymphocytes Percent Auto 2.9 % (20-44); Mean Corpuscular HGB Conc 32 gm/dL (32-36); Mean Corpuscular Hemoglobin 31 pg (26-34); Mean Corpuscular Volume 98 fL (80-100); Monocytes Percent Auto 5.7 % (0.0-11.0); Neutrophils Percent Auto 89.9 % (42.0-72.0); Platelet Count* 94 K/uL (140-440); RDW Coefficient of Variation % 14.6 % (11.5-15.5); Red Blood Count 3.51 m/uL (4.00-5.20); White Blood Count* 12.39 K/uL (4.50-11.00)
[2023-11-26 07:59] LABS: Slide Review Reflex No
[2023-11-26 08:00] LABS: Chloride* 97 mmol/L (96-114)
[2023-11-26 08:01] LABS: Potassium* 4.8 mmol/L (3.6-5.1); Sodium* 134 mmol/L (135-149)
[2023-11-26 08:03] LABS: Creatinine* 1.6 mg/dL (0.5-1.5); Est. Creatinine Clearance* 21.87; Estimated Glomerular Filt Rate 31 ml/min; INR 2.91 (0.91-1.10); Prothrombin Time 32.7 Seconds
[2023-11-26 08:04] LABS: Anion Gap 11 mEq/L (7-15); Blood Urea Nitrogen* 69 mg/dL (7-30); Calcium* 9.3 mg/dL (8.4-10.6); Carbon Dioxide* 26 mmol/L (20-32); Glucose* 113 mg/dL (60-115); Phosphorus* 4.9 mg/dL (2.5-4.5)
[2023-11-26 08:32] VITALS: BP 135/85; PULSE 78; RESP 22; TEMP 36.5; O2SAT 90
[2023-11-26] MEDS: SENNOSIDES/DOCUSATE TABLET 1 TAB PO ×2 (10:01→20:09)
[2023-11-26] MEDS: SODIUM CHLORIDE 0.9 % (FLUSH) 10 ML SYRINGE 5 ML IVF ×2 (10:02→20:10)
[2023-11-26 15:00] VITALS: BP 142/82; PULSE 61; PULSE 78; RESP 18; RESP 20; TEMP 36.6; O2SAT 90; O2SAT 96
--- NOTE | 2023-11-26 15:13 | P.IMPN_ITS ---
Progress Note: A&P Assessment and plan (1) Closed pelvic ring fracture: Problem details: - sustained after mechanical fall at home, 11/23/23 - pain management, WBAT, PT, OT, SW referral for SNF placement - Adjacent hemorrhage on CT yesterday. Hemoglobin relatively stable after small initial drop. Back on warfarin. Hemoglobin stable Status: Acute (2) Hypoxia: Problem details: - mild, new - no acute findings on CXR: no tachycardia, no chest pain, dyspnea, cough, or hemoptysis, no LE edema - continue supplemental oxygen, RT consult. Suspect restrictive lung disease due to kyphosis of the spine and body habitus preventing good inspiration. May need chronic oxygen Suspect undiagnosed sleep apnea. Not obviously having primary pulmonary disease. Status: Acute (3) Paroxysmal atrial fibrillation: Problem details: - anticoagulated on Coumadin, rate controlled on Metoprolol Restart Coumadin yesterday - last TTE in 06/17: Final Impressions: 1. Normal LV size, normal wall thickness, normal global systolic function with an estimated EF of 55 - 60%. 2. Right ventricular cavity size is mildly enlarged, global systolic RV function is mildly reduced. 3. The aortic valve is trileaflet and sclerotic, no stenosis and no regurgitation. 4. The mitral valve is sclerotic, mild mitral regurgitation. 5. Mild-moderate tricuspid regurgitation. 6. Mildly enlarged left atrium. 7. Echo contrast was administered to enhance visualization of all left ventricular segments. Status: Chronic (4) Essential hypertension: Problem details: - holding fosinopril due to increased creatinine and mild hyperkalemia Status: Acute (5) Acute kidney injury superimposed on chronic kidney disease: Problem details: Chronically creatinine is 1.0 with stage 3 kidney disease. Creatinine up to 1.9 and now down to 1.6 today. I suspect this is due to hypotension and blood loss from her fracture. She did get a small bolus of fluid, 500 mL today. I encouraged oral intake. Hold Monopril and monitor renal function. Status: Acute Plan Continue in hospital for evaluation management of pelvic pain and disability from fractures. Continue to monitor acute kidney injury and blood pressure. Continue to monitor volume status and electrolytes. Anticipate discharge to assisted facility or higher level of cyst and living. Time Spent With Patient Total time spent: Total time spent today is 40 minutes, 30 minutes in coordination of care discussed with patient and other providers management of disability and hypoxia and disposition. Subjective Date Seen: 11/26/23 Interval history: 80-year-old female admitted to the hospital 2 days ago after falling at home. She was sitting down on a chair when 1 of the pillows slipped and she fell hitting her left hip. This was a relatively low energy fall and there were no other injuries. She had fairly severe pain and was unable to ambulate. She was found to have left superior and inferior pubic rami fractures with adjacent hemorrhage. She also had a nondisplaced fracture of the left sacral ala. She is on warfarin with a currently therapeutic INR. Subtherapeutic INR when she fell. Since admission she has reported that she is comfortable when she is sitting still but does not tolerate movement or weight-bearing at all. She is permitted to weight bear as tolerated unable to do so because of pain and weakness. Since admission she has been hypoxic with O2 sats in the 80s. She has been on supplemental oxygen reports no dyspnea. She is not aware of any history of hypoxia or pulmonary disease. There is a clinical suspicion of undiagnosed sleep apnea which has never been evaluated. She has a remote history of cigarette smoking. No recent respiratory illness. She has had some hypotension presumably secondary to acute blood loss from the fractures. She has also had an elevation in her creatinine. This is suspected to be due to her hypotension and acute blood loss. She has been on Monopril and this was discontinued yesterday after her morning dose. Creatinine has gone from 1.0-1.9 and now down to 1.6 today. She reports poor appetite and poor oral intake but better today. She reports no dyspnea but still has hypoxia. She is struggling to understand how to use incentive spirometer. She has been moving fairly well with therapy standby assist of 2. Pain control has been quite good and not needing significant opioid treatment Exam Narrative: Exam Narrative: She is alert and appears in no distress. Breathing is unlabored on supplemental oxygen. Respirations are clear to auscultation. Marked kyphosis of the spine noted. Cardiovascular: S1, S2, regular rate and rhythm. No murmur gallop or rub. Abdomen: Bowel sounds active. Abdomen is soft without tenderness or mass. Extremities with 2+ edema. Const: Vital Signs, click to edit/add: Vital Signs - 24 hr 11/25/23 15:44 11/25/23 16:00 11/25/23 16:00 Temperature 97.6 F Pulse Rate [Right Radial] 60 60 Respiratory Rate 20 20 20 Blood Pressure [Ri ght Arm] 104/56 L Pulse Oximetry 94 94 Oxygen Delivery Me thod Nasal Cannula Nasal Cannula Oxygen Flow Rate 2 2 11/25/23 19:50 11/25/23 21:25 11/25/23 23:00 Temperature 97.8 F Pulse Rate [Right Radial] 70 70 Respiratory Rate 20 20 Blood Pressure [Ri ght Arm] 121/66 105/59 L Pulse Oximetry 94 Oxygen Delivery Me thod Nasal Cannula Oxygen Flow Rate 2 11/25/23 23:00 11/25/23 23:00 11/26/23 03:00 Temperature 98 F 97.9 F Pulse Rate [Right Radial] 74 61 Respiratory Rate 20 20 20 Blood Pressure [Ri ght Arm] 135/71 148/67 H Pulse Oximetry 93 93 94 Oxygen Delivery Me thod Nasal Cannula Nasal Cannula Nasal Cannula Oxygen Flow Rate 2 2 2 11/26/23 07:00 11/26/23 08:32 Temperature 97.7 F Pulse Rate [Right Radial] 78 Respiratory Rate 18 22 Blood Pressure [Ri ght Arm] 135/85 Pulse Oximetry 90 90 Oxygen Delivery Me thod Room Air Room Air Oxygen Flow Rate Documenting provider has reviewed patient's vital signs: yes Labs Labs: Laboratory Results - last 24 hr 11/26/23 07:33 WBC 12.39 H RBC 3.51 L Hgb 11.0 L Hct 34.3 MCV 98 MCH 31 MCHC 32 RDW Coeff of [place] 14.6 Plt Count 94 L Neut % (Auto) 89.9 H Lymph % (Auto) 2.9 L [place] % (Auto) 5.7 Eos % (Auto) 0.7 Baso % (Auto) 0.2 Neut # (Auto) 11.10 H Lymph # (Auto) 0.40 L [place] # (Auto) 0.70 Eos # (Auto) 0.10 Baso # (Auto) 0.00 Abs Immat Gran (auto) 0.10 Imm/Tot Granulo (auto) 0.6 INR 2.91 H Sodium 134 L Potassium 4.8 Chloride 97 Carbon Dioxide 26 Anion Gap 11 BUN 69 H Creatinine 1.6 H Estimated Creat Clear 21.87 Estimated GFR 31 Glucose 113 Calcium 9.3 Phosphorus 4.9 H
[2023-11-26] MEDS: WARFARIN 2 MG TABLET PO (17:32)
--- NOTE | 2023-11-26 17:48 | PC.NURSE ---
shift note: pt rating lt hip pain 1/0 at rest. Lt hip pain increased to 4/10 when standing. LS clr. pt on 0.5-1L pnc O2 with sats 95%.
[2023-11-26 19:00] VITALS: BP 145/69; PULSE 65; RESP 22; TEMP 36.4; O2SAT 93
[2023-11-26] MEDS: METOPROLOL SUCCINATE (XL) 25 MG TAB PO (20:09)
[2023-11-26 23:00] VITALS: PULSE 65; RESP 22; O2SAT 93
[2023-11-27 03:00] VITALS: BP 161/81; PULSE 70; RESP 20; TEMP 36.5; O2SAT 93
[2023-11-27] MEDS: ACETAMINOPHEN 650 MG TABLET ER 1300 MG PO ×2 (03:25→11:37)
[2023-11-27] MEDS: LEVOTHYROXINE 125 MCG TABLET PO (06:13)
[2023-11-27] MEDS: polyethylene glycoL 3350 17 GM PACK PO (06:19)
[2023-11-27 06:32] LABS: Basophils Absolute Auto 0.01 K/uL (0.00-0.30); Basophils Percent Auto 0.1 % (0.0-3.0); Eosinophils Absolute Auto 0.09 K/uL (0.00-0.50); Hematocrit 29.6 % (33.0-51.0); Hemoglobin* 9.8 gm/dL (12.0-16.0); Immature Granulocytes Abs Auto 0.03 K/uL (0.00-0.30); Immature Granulocytes Pct Auto 0.3 %; Lymphocytes Percent Auto 4.4 % (20-44); Mean Corpuscular HGB Conc 33 gm/dL (32-36); Mean Corpuscular Hemoglobin 31 pg (26-34); Mean Corpuscular Volume 94 fL (80-100); Monocytes Percent Auto 5.4 % (0.0-11.0); Neutrophils Percent Auto 88.8 % (42.0-72.0); Platelet Count* 105 K/uL (140-440); RDW Coefficient of Variation % 14.4 % (11.5-15.5); Red Blood Count 3.14 m/uL (4.00-5.20); White Blood Count* 9.22 K/uL (4.50-11.00)
[2023-11-27 06:38] LABS: Slide Review Reflex No
--- NOTE | 2023-11-27 06:42 | PC.NURSE ---
End of shift report [id number]: Alert and oriented x 4. Pain to pelvis well managed with current regimen, repositioning and rest. Transfers with moderate assist x 2 with gait belt and walker, pivot transfer to bedside commode. Patient able to maintain O2 sats >90% throughout the night on room air. Patient request miralax in the morning for reports of constipation.
[2023-11-27 07:00] LABS: Chloride* 97 mmol/L (96-114); Potassium* 4.6 mmol/L (3.6-5.1); Sodium* 131 mmol/L (135-149)
[2023-11-27 07:03] LABS: Anion Gap 7 mEq/L (7-15); Blood Urea Nitrogen* 61 mg/dL (7-30); Carbon Dioxide* 27 mmol/L (20-32); Creatinine* 1.2 mg/dL (0.5-1.5); Est. Creatinine Clearance* 29.16; Estimated Glomerular Filt Rate 44 ml/min; Glucose* 107 mg/dL (60-115)
[2023-11-27 07:19] LABS: Prothrombin Time 36.2 Seconds
[2023-11-27 07:30] VITALS: BP 160/97; PULSE 71; RESP 18; TEMP 36; O2SAT 94
[2023-11-27 07:44] VITALS: RESP 18; O2SAT 94
[2023-11-27] MEDS: FOSINOPRIL SODIUM 20 MG TABLET 5 MG PO (08:46)
[2023-11-27] MEDS: SENNOSIDES/DOCUSATE TABLET 1 TAB PO (08:46)
[2023-11-27] MEDS: SODIUM CHLORIDE 0.9 % (FLUSH) 10 ML SYRINGE 5 ML IVF (08:46)
--- NOTE | 2023-11-27 10:14 | PC.SOCIAL ---
Discharge plan: At pt request, called [facility] and spoke with Roro in admitting who stated they only have a shared room available. Met with pt who states she is not interested in a shared room and is not interseted in placement outside of [facility] for short term rehab. Pt is requesting admission to the [facility]isted [facility] unit at [facility]. Called Karin at that facility and requested she call back about admit there today. Karin had stated on Monday that they had a bed available on Monday. shell worker to follow up as needed.
--- NOTE | 2023-11-27 11:21 | PM.DS1 ---
DS: Providers Provider Date Seen: 11/27/23 Date of admission: 11/23/23 17:42 Primary care physician: Brittanie Whyte DO Admitting Clinician: Jessica Wilson MD Consults: PT, OT, RT Attending Physician on discharge: Jessica Wilson MD Date of Discharge: 11/27/23 DS: Diagnosis Discharge Diagnosis (1) Closed pelvic ring fracture: Status: Acute Problem details: - sustained after mechanical fall at home, 11/23/23 - pain management, WBAT, PT, OT, SW followed during stay - Adjacent hemorrhage on CT yesterday. Hemoglobin relatively stable after small initial drop, Warfarin restarted hospital day 2 and Hgb remained stable (2) Hypoxia: Status: Acute Problem details: - mild, new; suspected restrictive lung disease 2/2 kyphosis, likely also has TIFFANIE and notes chronic WICK since COVID in 2021 - no acute findings on CXR: no tachycardia, no chest pain, dyspnea, cough, or hemoptysis, no LE edema - continue supplemental oxygen - RT followed during stay and patient discharged home on low dose supplemental O2 (3) Paroxysmal atrial fibrillation: Status: Chronic Problem details: - anticoagulated on Coumadin, rate controlled on Metoprolol - last TTE in 06/17: Final Impressions: 1. Normal LV size, normal wall thickness, normal global systolic function with an estimated EF of 55 - 60%. 2. Right ventricular cavity size is mildly enlarged, global systolic RV function is mildly reduced. 3. The aortic valve is trileaflet and sclerotic, no stenosis and no regurgitation. 4. The mitral valve is sclerotic, mild mitral regurgitation. 5. Mild-moderate tricuspid regurgitation. 6. Mildly enlarged left atrium. 7. Echo contrast was administered to enhance visualization of all left ventricular segments. (4) Essential hypertension: Status: Acute Problem details: - Fosinopril dose decreased from 10 --> 5mg during stay 2/2 ALON - Metoprolol continued at 50mg daily - Age appropriate BP control upon discharge (5) Acute kidney injury superimposed on chronic kidney disease: Status: Acute Problem details: - outpatient baseline creatinine is 1.0 with stage 3 kidney disease - creatinine peaked at 1.9 during stay, presumably prerenal 2/2 acute blood loss/hypotension after fracture. Treated with IVF bolus, Fosinopril held - creatinine improved to 1.2 on day of discharge, fosinopril restarted at lower dose DS: Summary Hospital Course Hospital Course: Kaitlynn was admitted to the hospital on after a mechanical fall at home, sustained a closed pelvic ring fracture. She was seen by therapies and TCU stay recommended. Notably, found to have new hypoxia (details above), discharged home on supplemental oxygen, will f/u with PCP for this. ALON noted during stay, resolved. Comorbidities otherwise stable with details above. Medication changes: DECREASE Fosinopril from 10--5mg (new Rx sent to pharmacy) DECREASE Warfarin dosing to 2mg on M// and 4mg ROW (INR was >3 on 11/27/23) Patient medically appropriate for discharge to [facility] on 11/27/23. Status at Discharge Functional status at discharge: uses cane/walker Overall status at discharge: patient is progressing back to baseline Time Spent with Patient Time attestation: Total time spent providing and/or coordinating discharge services: Time spent: Greater than 30 minutes Specific discharge activities: Care coordination, home O2 evaluation, documentation, medication management and reconciliation Exam Narrative: Exam Narrative: GEN: Alert and oriented, sitting comfortably in bedside chair HEENT: EOMIs bilaterally, no scleral icterus CV: RRR, No concerning murmurs R: LCTA bilaterally without concerning wheezing, decreased bibasilar air movement Back: kyphotic Ext: trace edema BLE, bilateral lower extremity erythema c/w PVD Skin: No other concerning skin lesions or rashes on exposed skin Neuro: No focal deficits on limited neuro exam Psych: Appropriate Const: Vital Signs, click to edit/add: Vital Signs - 24 hr 11/26/23 15:00 11/26/23 15:00 11/26/23 15:00 Temperature 97.8 F Pulse Rate [Pulse Oximeter] Pulse Rate [Right Radial] 78 61 Respiratory Rate 18 18 20 Blood Pressure [Ri ght Arm] 142/82 H Pulse Oximetry 90 96 Oxygen Delivery Me thod Room Air Nasal Cannula Oxygen Flow Rate 1.5 0.5 11/26/23 19:00 11/26/23 23:00 11/26/23 23:00 Temperature 97.5 F L Pulse Rate [Pulse Oximeter] Pulse Rate [Right Radial] 65 65 Respiratory Rate 22 22 22 Blood Pressure [Ri ght Arm] 145/69 H Pulse Oximetry 93 93 Oxygen Delivery Me thod Room Air Room Air Oxygen Flow Rate 0.5 11/27/23 03:00 11/27/23 07:30 11/27/23 07:44 Temperature 97.7 F 96.8 F L Pulse Rate [Pulse Oximeter] 71 Pulse Rate [Right Radial] 70 Respiratory Rate 20 18 18 Blood Pressure [Ri ght Arm] 161/81 H 160/97 H Pulse Oximetry 93 94 94 Oxygen Delivery Me thod Room Air Room Air Room Air Oxygen Flow Rate 0 DS: Data Data Completed and Pending Labs on day of discharge: Labs from last 24 hours 11/27/23 06:03 WBC 9.22 RBC 3.14 L Hgb 9.8 L Hct 29.6 L MCV 94 MCH 31 MCHC 33 RDW Coeff of Coral 14.4 Plt Count 105 L Neut % (Auto) 88.8 H Lymph % (Auto) 4.4 L [place] % (Auto) 5.4 Eos % (Auto) 1.0 Baso % (Auto) 0.1 Neut # (Auto) 8.20 H Lymph # (Auto) 0.40 L [place] # (Auto) 0.50 Eos # (Auto) 0.09 Baso # (Auto) 0.01 Abs Immat Gran (auto) 0.03 Imm/Tot Granulo (auto) 0.3 INR 3.30 H Sodium 131 L Potassium 4.6 Chloride 97 Carbon Dioxide 27 Anion Gap 7 BUN 61 H Creatinine 1.2 Estimated Creat Clear 29.16 Estimated GFR 44 Glucose 107 Calcium 9.0 Discharge Plan Discharge Disposition: [facility] Date of Admission: 11/23/23 17:42 Attending Provider on Discharge: Jessica Wilson Primary Care Provider: Brittanie Whyte Condition: Stable Anticipated Discharge Date/Time: 11/27/23 11:08 Discharge Medications: New sennosides-docusate sodium [Stool Softener-Laxative] 8.6-50 mg Tablet 1 tab PO BID Qty: 60 0RF acetaminophen 650 mg Tablet Extended Release 1,300 mg PO Q8H Qty: 30 0RF bisacodyl 10 mg Suppository 10 mg MD DAILY PRN (Reason: Constipation) Qty: 30 0RF oxycodone 5 mg Tablet 2.5 - 5 mg PO Q4H PRN (Reason: Pain) Qty: 30 0RF fosinopril 10 mg tablet 5 mg PO DAILY Qty: 30 0RF warfarin 2 mg tablet 2 mg PO DAILY Qty: 30 3RF Rx Instructions: 2mg on M/W/F, 4mg ROW (THIS IS DOSE CHANGE FROM PREVIOUS) Continued cholecalciferol (vitamin D3) 50 mcg (2,000 unit) tablet 2,000 unit PO DAILY calcium carbonate-vitamin D3 500 mg-10 mcg (400 unit) tablet 1 tab PO DAILY multivitamin Tablet 1 tab PO DAILY PreserVision AREDS [id number] zoys-si-dimk capsule 1 cap PO DAILY metoprolol succinate 50 mg tablet extended release 24 hr 50 mg PO DAILY levothyroxine 125 mcg tablet 125 mcg PO QAM Discontinued warfarin 2 mg tablet 2 - 4 mg PO .ud Patient Comments: take 1 tablet (2mg) by mouth on monday; then 2 tablets (4mg) on all other days or as directed. fosinopril 10 mg tablet 10 mg PO DAILY fluconazole 150 mg tablet 150 mg PO QWEEK Discharge Orders: Discharge Order (Routine); Ordered 11/27/23 Ordered By: Jessica Wilson Additional Instructions: Medication changes: DECREASE Fosinopril from 10--5mg (new Rx sent to pharmacy) DECREASE Warfarin dosing to 2mg on /W/ and 4mg ROW (your INR was >3 on 11/27/23) Activity Level: Activity as Tolerated Activity Detail: per therapies Discharge Diet: Regular Follow Up Appointments: Brittanie Whyte DO [Primary Care Provider] - (please call and make appt with Dr. Whyte (hospital discharge f/u) in 10-14 days) Forms: [employer] Info Instructions Admit to: Assisted Living Discharge Potential: Good Length of Stay: <30 days Can use facility standing orders?: Yes Code Status: Full Code Rehab Potential: Good Therapy: Physical Therapy and Occupational Therapy Therapy Orders: Evaluate and Treat Therapy Orders Additional Information: known pelvic fracture s/p fall Oxygen Delivery Method: Nasal Cannula Oxygen Flow Rate: 1 Urinary Catheter: No Glucose Checks: n/a Next INR: 11/29/23 INR Goal: 2.0-3.0 Lab Orders: BMP 7-10 days Hospice Evaluate and Admit: n/a Orders are good >30 days: Yes Signature: Jessica Wilson MD
[2023-11-27 11:40] VITALS: BP 155/80; PULSE 63; RESP 18; TEMP 36.1; O2SAT 91
[2023-11-27 12:09] VITALS: O2SAT 80; O2SAT 84; O2SAT 92
--- NOTE | 2023-11-27 13:55 | PC.NURSE ---
Pt alert and oriented. VSS. Pt assist of two with gait belt and walker; Pivot transfer. Pt has no complaints of pain except when transferring. Pt up in chair. Pt takes medications whole. Pt assessed by RN from [facility] for [facility]. Pt accepted to [facility] at [facility]. IV removed; catheter intact. Pt picked up by [facility] meri at 1345.
== END 2023-11-27 13:45 | disposition home health service (06) | DRG 535 ==
LOC: ED 13:16 → MEDSURG 15:56
PROVIDERS: Family Medicine; Admitting Provider Family Medicine; Emergency Provider Emergency Medicine; PCP Family Medicine; Visit Provider Family Medicine
DX: S32.810A Multiple fractures of pelvis with stable disruption of pelvic ring, initial encounter for closed fracture (principal); J96.21 Acute and chronic respiratory failure with hypoxia; S32.19XA Other fracture of sacrum, initial encounter for closed fracture; N18.4 Chronic kidney disease, stage 4 (severe); D62 Acute posthemorrhagic anemia; N17.9 Acute kidney failure, unspecified; S70.02XA Contusion of left hip, initial encounter; S76.092A Other specified injury of muscle, fascia and tendon of left hip, initial encounter; I95.9 Hypotension, unspecified; I48.0 Paroxysmal atrial fibrillation; Z79.01 Long term (current) use of anticoagulants; I12.9 Hypertensive chronic kidney disease with stage 1 through stage 4 chronic kidney disease, or unspecified chronic kidney disease; G47.33 Obstructive sleep apnea (adult) (pediatric); W07.XXXA Fall from chair, initial encounter; Y92.039 Unspecified place in apartment as the place of occurrence of the external cause; Z95.0 Presence of cardiac pacemaker; Z91.81 History of falling; E03.9 Hypothyroidism, unspecified; J98.4 Other disorders of lung; M40.209 Unspecified kyphosis, site unspecified
CPT/HCPCS: 36415; 71045; 73502; 73700; 80048; 81001; 83880; 84100; 85025; 85610; 87086; 87186; 87631; 97110; 97162; 97165; 97530; 97535; 99284; 99285; A9270; J7030

== ENCOUNTER 2023-12-06 15:34 | Outpatient (REF) | payer MEDICARE, BC, SELFPAY ==
[2023-12-06 17:13] LABS: Prothrombin Time 43.1 Seconds
[2023-12-06 17:20] LABS: Chloride* 94 mmol/L (96-114); Sodium* 132 mmol/L (135-149)
[2023-12-06 17:21] LABS: Potassium* 5.3 mmol/L (3.6-5.1)
[2023-12-06 17:23] LABS: Anion Gap 8 mEq/L (7-15); Carbon Dioxide* 30 mmol/L (20-32); Creatinine* 1.1 mg/dL (0.5-1.5); Estimated Glomerular Filt Rate 48 ml/min
[2023-12-06 17:24] LABS: Blood Urea Nitrogen* 54 mg/dL (7-30); Calcium* 8.9 mg/dL (8.4-10.6); Glucose* 96 mg/dL (60-115)
== END 2023-12-06 15:35 | disposition home or self-care (01) ==
LOC: NPINS 15:34
PROVIDERS: PCP Family Medicine; Visit Provider Family Medicine
DX: E87.1 Hypo-osmolality and hyponatremia (principal)
CPT/HCPCS: 80048; 85610

== ENCOUNTER 2023-12-12 09:13 | Outpatient (CLI) | payer MEDICARE, BC, SELFPAY | END 2023-12-12 09:14 | disposition home or self-care (01) | LOC: AMB 12-18 00:50 | PROVIDERS: PCP Family Medicine; Visit Provider Family Medicine | DX: R55 Syncope and collapse (principal) | CPT/HCPCS: A0429 ==